=== PATIENT | female | born 1960 | race African-American/Black ===

== ENCOUNTER 2021-06-22 08:53 | Inpatient (IN) | payer OTHER ==
[2021-06-22 09:20] VITALS: BMI 25.6
[2021-06-22] MEDS ORDERED: MAGNESIUM CITRATE 300 ML BOTTLE PO PRN (12:07)
[2021-06-22] MEDS ORDERED: BISMUTH SUBSALICYLATE 524 MG/30 ML PO PRN (12:07)
[2021-06-22] MEDS ORDERED: NICOTINE POLACRILEX 4 MG GUM BUC PRN (12:07)
[2021-06-22] MEDS ORDERED: MAGNESIUM HYDROX 2400MG/30ML ORAL SUSPENSION 30 ML CUP PO PRN (12:07)
[2021-06-22] MEDS ORDERED: ONDANSETRON *ODT* 4 MG TABLET SL PRN (12:07)
[2021-06-22] MEDS ORDERED: MENTHOL/PHENOL 1 EACH UD MM PRN (12:07)
[2021-06-22] MEDS ORDERED: MAG HYDROX/AL HYDROX/SIMETH 30 ML UNIT-DOSE CUP PO PRN (12:07)
[2021-06-22] MEDS ORDERED: ACETAMINOPHEN 325 MG TABLET (FP) PO PRN ×2 (12:07)
[2021-06-22] MEDS ORDERED: IBUPROFEN 400 MG TABLET (FP) PO PRN (12:07)
[2021-06-22] MEDS: hydrOXYzine PAMOATE 25 MG CAPSULE (FP) PO SCH ×3 (13:08→23:14)
[2021-06-22] MEDS: diazePAM 5 MG TABLET PO PRN (13:08)
[2021-06-22] MEDS: diazePAM 5 MG TABLET PO SCH ×2 (18:24→23:14)
[2021-06-22] MEDS: THIAMINE HCL 100 MG TABLET (FP) PO SCH (23:14)
[2021-06-22] MEDS: MELATONIN 5 MG TABLETS PO SCH (23:14)
[2021-06-23] MEDS: hydrOXYzine PAMOATE 25 MG CAPSULE (FP) PO SCH ×3 (05:37→13:24)
[2021-06-23] MEDS: diazePAM 5 MG TABLET PO SCH ×4 (05:37→22:39)
[2021-06-23] MEDS: PRENATAL VITAMINS W/ FOLIC ACID TABLET (FP) PO SCH (10:21)
[2021-06-23 11:13] LABS: ALBUMIN 3.2 g/dl (3.4-5.0); CALCIUM 8.6 mg/dL (8.5-10.1)
[2021-06-23 11:14] LABS: HEMOGLOBIN 13.7 GM/dL (10.7-15.3); MCH 32.5 pg (25.7-33.7); MCHC 35.2 g/dl (32.0-36.0); MEAN CELL VOLUME 92.3 fl (80-96); MEAN PLT VOLUME 7.6 fl (7.5-11.1); PLATELET COUNT 294 10^3/uL (134-434); RBC 4.22 M/mm3 (3.60-5.2); RDW 13.7 % (11.6-15.6); WHITE BLOOD COUNT 6.4 K/mm3 (4.0-10.0)
[2021-06-23 11:19] LABS: BILIRUBIN,TOTAL 0.3 mg/dL (0.2-1); TOT PROT 7.2 g/dl (6.4-8.2)
[2021-06-23] MEDS ORDERED: hydrOXYzine PAMOATE 25 MG CAPSULE (FP) PO PRN (13:45)
[2021-06-23] MEDS ORDERED: PENICILLIN G BENZATHINE 2,400,000 UNIT/4 ML PFS IM ONE (14:18)
[2021-06-23] MEDS: MELATONIN 5 MG TABLETS PO SCH (22:39)
[2021-06-23] MEDS: diazePAM 5 MG TABLET PO ONE (22:42)
[2021-06-23] MEDS: THIAMINE HCL 100 MG TABLET (FP) PO SCH (22:43)
[2021-06-24] MEDS: diazePAM 5 MG TABLET PO SCH ×4 (06:01→22:36)
[2021-06-24] MEDS: diazePAM 5 MG TABLET PO PRN (10:26)
[2021-06-24] MEDS: PRENATAL VITAMINS W/ FOLIC ACID TABLET (FP) PO SCH (10:26)
[2021-06-24] MEDS: THIAMINE HCL 100 MG TABLET (FP) PO SCH (22:35)
[2021-06-24] MEDS: MELATONIN 5 MG TABLETS PO SCH (22:35)
[2021-06-24] MEDS: METHOCARBAMOL 500 MG TABLET PO PRN (22:36)
[2021-06-25] MEDS: diazePAM 5 MG TABLET PO SCH ×2 (07:24→18:42)
[2021-06-25] MEDS: PRENATAL VITAMINS W/ FOLIC ACID TABLET (FP) PO SCH (09:17)
[2021-06-25] MEDS: THIAMINE HCL 100 MG TABLET (FP) PO SCH (22:51)
[2021-06-25] MEDS: MELATONIN 5 MG TABLETS PO SCH (22:51)
[2021-06-26] MEDS: diazePAM 5 MG TABLET PO ONE (07:20)
[2021-06-26] MEDS: METHOCARBAMOL 500 MG TABLET PO PRN (07:33)
[2021-06-26] MEDS: PRENATAL VITAMINS W/ FOLIC ACID TABLET (FP) PO SCH (10:35)
[2021-06-26 13:53] VITALS: BP 129/83; PULSE 77; TEMP 96.9
== END 2021-06-26 14:36 | disposition other institution (70) | DRG 775 ==
LOC: YASAS 08:53 → Y3N 10:04
PROVIDERS: ADMIT Allergy & Immunology; ATTEND Allergy & Immunology
PROC: HZ2ZZZZ Detoxification Services for Substance Abuse Treatment (ICD-10-PCS; principal; 2021-06-22)
DX: F10.230 Alcohol dependence with withdrawal, uncomplicated (principal); F17.210 Nicotine dependence, cigarettes, uncomplicated; F43.10 Post-traumatic stress disorder, unspecified; M54.5 Low back pain; G89.29 Other chronic pain; A53.9 Syphilis, unspecified; R26.2 Difficulty in walking, not elsewhere classified; Z99.89 Dependence on other enabling machines and devices; Z87.81 Personal history of (healed) traumatic fracture; Z62.810 Personal history of physical and sexual abuse in childhood; Z56.0 Unemployment, unspecified
CPT/HCPCS: 36415; 80053; 85027; 86593; 86780; 93005; 93010; C9803; Q0162; U0003; U0005

== ENCOUNTER 2021-06-26 15:04 | Inpatient (IN) | payer OTHER ==
[2021-06-26] MEDS ORDERED: MAG HYDROX/AL HYDROX/SIMETH 30 ML UNIT-DOSE CUP PO PRN (16:02)
[2021-06-26] MEDS ORDERED: guaiFENesin 200 MG/10 ML 10 ML UNIT-DOSE CUPS PO PRN (16:02)
[2021-06-26] MEDS ORDERED: NICOTINE 10 MG CARTRIDGE (INHALER) IH PRN (16:02)
[2021-06-26] MEDS ORDERED: P-EPHED 60MG/TRIPROLIDI 2.5MG TABLET PO PRN (16:02)
[2021-06-26] MEDS ORDERED: MENTHOL/PHENOL 1 EACH UD MM PRN (16:02)
[2021-06-26] MEDS ORDERED: IBUPROFEN 400 MG TABLET (FP) PO PRN (16:02)
[2021-06-26] MEDS ORDERED: MAGNESIUM CITRATE 300 ML BOTTLE PO PRN (16:02)
[2021-06-26] MEDS ORDERED: LOPERAMIDE HCL 2 MG CAPSULE PO PRN (16:02)
[2021-06-26] MEDS ORDERED: ACETAMINOPHEN 325 MG TABLET (FP) PO PRN (16:02)
[2021-06-26] MEDS ORDERED: MAGNESIUM HYDROX 2400MG/30ML ORAL SUSPENSION 30 ML CUP PO PRN (16:02)
[2021-06-26] MEDS: MELATONIN 5 MG TABLETS PO SCH (22:30)
[2021-06-26] MEDS: THIAMINE HCL 100 MG TABLET (FP) PO SCH (22:31)
[2021-06-27] MEDS: PRENATAL VITAMINS W/ FOLIC ACID TABLET (FP) PO SCH (11:11)
[2021-06-27] MEDS: NICOTINE 7 MG/24 HOURS TOPICAL PATCH TD SCH (11:11)
[2021-06-27] MEDS: METHOCARBAMOL 500 MG TABLET PO PRN (16:01)
[2021-06-27] MEDS: NICOTINE POLACRILEX 4 MG GUM BUC PRN (16:01)
[2021-06-27] MEDS: THIAMINE HCL 100 MG TABLET (FP) PO SCH (21:08)
[2021-06-27] MEDS: MELATONIN 5 MG TABLETS PO SCH (21:08)
[2021-06-28] MEDS: METHOCARBAMOL 500 MG TABLET PO PRN ×3 (06:24→22:30)
[2021-06-28] MEDS: NICOTINE POLACRILEX 4 MG GUM BUC PRN ×2 (06:25→10:50)
[2021-06-28] MEDS: PRENATAL VITAMINS W/ FOLIC ACID TABLET (FP) PO SCH (10:50)
[2021-06-28] MEDS: NICOTINE 7 MG/24 HOURS TOPICAL PATCH TD SCH (10:50)
[2021-06-28] MEDS: THIAMINE HCL 100 MG TABLET (FP) PO SCH (22:29)
[2021-06-28] MEDS: MELATONIN 5 MG TABLETS PO SCH (22:29)
[2021-06-29] MEDS: NICOTINE 7 MG/24 HOURS TOPICAL PATCH TD SCH (10:37)
[2021-06-29] MEDS: PRENATAL VITAMINS W/ FOLIC ACID TABLET (FP) PO SCH (10:37)
[2021-06-29] MEDS: METHOCARBAMOL 500 MG TABLET PO PRN ×3 (10:38→22:25)
[2021-06-29] MEDS: MELATONIN 5 MG TABLETS PO SCH (22:25)
[2021-06-29] MEDS: THIAMINE HCL 100 MG TABLET (FP) PO SCH (22:26)
[2021-06-30] MEDS: NICOTINE 7 MG/24 HOURS TOPICAL PATCH TD SCH (11:05)
[2021-06-30] MEDS: PRENATAL VITAMINS W/ FOLIC ACID TABLET (FP) PO SCH (11:05)
[2021-06-30] MEDS: METHOCARBAMOL 500 MG TABLET PO PRN ×2 (11:06→20:10)
[2021-06-30] MEDS: THIAMINE HCL 100 MG TABLET (FP) PO SCH (22:31)
[2021-06-30] MEDS: MELATONIN 5 MG TABLETS PO SCH (22:31)
[2021-07-01] MEDS: PRENATAL VITAMINS W/ FOLIC ACID TABLET (FP) PO SCH (10:42)
[2021-07-01] MEDS: NICOTINE 7 MG/24 HOURS TOPICAL PATCH TD SCH (10:43)
[2021-07-01] MEDS: NICOTINE POLACRILEX 4 MG GUM BUC PRN (10:44)
[2021-07-01] MEDS: METHOCARBAMOL 500 MG TABLET PO PRN (12:11)
[2021-07-01] MEDS: MELATONIN 5 MG TABLETS PO SCH (22:06)
[2021-07-01] MEDS: THIAMINE HCL 100 MG TABLET (FP) PO SCH (22:06)
[2021-07-02] MEDS: METHOCARBAMOL 500 MG TABLET PO PRN ×3 (06:41→21:04)
[2021-07-02] MEDS: PRENATAL VITAMINS W/ FOLIC ACID TABLET (FP) PO SCH (11:20)
[2021-07-02] MEDS: NICOTINE POLACRILEX 4 MG GUM BUC PRN (11:21)
[2021-07-02] MEDS: NICOTINE 7 MG/24 HOURS TOPICAL PATCH TD SCH (11:21)
[2021-07-02] MEDS: MELATONIN 5 MG TABLETS PO SCH (21:04)
[2021-07-02] MEDS: THIAMINE HCL 100 MG TABLET (FP) PO SCH (21:04)
[2021-07-03] MEDS: NICOTINE 7 MG/24 HOURS TOPICAL PATCH TD SCH (10:41)
[2021-07-03] MEDS: PRENATAL VITAMINS W/ FOLIC ACID TABLET (FP) PO SCH (10:41)
[2021-07-03] MEDS: NICOTINE POLACRILEX 4 MG GUM BUC PRN (10:43)
[2021-07-03] MEDS: METHOCARBAMOL 500 MG TABLET PO PRN ×2 (10:43→21:13)
[2021-07-03] MEDS: THIAMINE HCL 100 MG TABLET (FP) PO SCH (21:13)
[2021-07-03] MEDS: MELATONIN 5 MG TABLETS PO SCH (21:13)
[2021-07-04] MEDS: NICOTINE 7 MG/24 HOURS TOPICAL PATCH TD SCH (10:49)
[2021-07-04] MEDS: PRENATAL VITAMINS W/ FOLIC ACID TABLET (FP) PO SCH (10:49)
[2021-07-04] MEDS: METHOCARBAMOL 500 MG TABLET PO PRN ×2 (10:50→22:10)
[2021-07-04] MEDS: NICOTINE POLACRILEX 4 MG GUM BUC PRN ×2 (10:50→22:11)
[2021-07-04] MEDS: MELATONIN 5 MG TABLETS PO SCH (22:10)
[2021-07-04] MEDS: THIAMINE HCL 100 MG TABLET (FP) PO SCH (22:10)
[2021-07-05] MEDS: NICOTINE 7 MG/24 HOURS TOPICAL PATCH TD SCH (09:45)
[2021-07-05] MEDS: PRENATAL VITAMINS W/ FOLIC ACID TABLET (FP) PO SCH (09:45)
[2021-07-05] MEDS: NICOTINE POLACRILEX 4 MG GUM BUC PRN (09:46)
[2021-07-05] MEDS: METHOCARBAMOL 500 MG TABLET PO PRN (09:47)
[2021-07-05] MEDS: THIAMINE HCL 100 MG TABLET (FP) PO SCH (22:05)
[2021-07-05] MEDS: MELATONIN 5 MG TABLETS PO SCH (22:05)
[2021-07-06] MEDS: NICOTINE 7 MG/24 HOURS TOPICAL PATCH TD SCH (09:33)
[2021-07-06] MEDS: METHOCARBAMOL 500 MG TABLET PO PRN ×2 (09:33→21:08)
[2021-07-06] MEDS: PRENATAL VITAMINS W/ FOLIC ACID TABLET (FP) PO SCH (09:33)
[2021-07-06] MEDS: THIAMINE HCL 100 MG TABLET (FP) PO SCH (21:08)
[2021-07-06] MEDS: MELATONIN 5 MG TABLETS PO SCH (21:08)
[2021-07-06] MEDS: NICOTINE POLACRILEX 4 MG GUM BUC PRN (21:09)
[2021-07-07] MEDS: PRENATAL VITAMINS W/ FOLIC ACID TABLET (FP) PO SCH (09:47)
[2021-07-07] MEDS: METHOCARBAMOL 500 MG TABLET PO PRN ×2 (09:47→21:16)
[2021-07-07] MEDS: NICOTINE 7 MG/24 HOURS TOPICAL PATCH TD SCH (09:47)
[2021-07-07] MEDS: NICOTINE POLACRILEX 4 MG GUM BUC PRN (09:48)
[2021-07-07] MEDS: hydrOXYzine PAMOATE 25 MG CAPSULE (FP) PO PRN (09:48)
[2021-07-07] MEDS: MELATONIN 5 MG TABLETS PO SCH (21:15)
[2021-07-07] MEDS: THIAMINE HCL 100 MG TABLET (FP) PO SCH (21:15)
[2021-07-08] MEDS: NICOTINE 7 MG/24 HOURS TOPICAL PATCH TD SCH (11:46)
[2021-07-08] MEDS: PRENATAL VITAMINS W/ FOLIC ACID TABLET (FP) PO SCH ×2 (11:46→12:32)
[2021-07-08] MEDS: NICOTINE POLACRILEX 4 MG GUM BUC PRN (12:32)
[2021-07-08] MEDS: METHOCARBAMOL 500 MG TABLET PO PRN ×2 (12:32→21:11)
[2021-07-08] MEDS: MELATONIN 5 MG TABLETS PO SCH (21:10)
[2021-07-08] MEDS: THIAMINE HCL 100 MG TABLET (FP) PO SCH (21:10)
[2021-07-09] MEDS: METHOCARBAMOL 500 MG TABLET PO PRN (10:45)
[2021-07-09] MEDS: PRENATAL VITAMINS W/ FOLIC ACID TABLET (FP) PO SCH (10:45)
[2021-07-09] MEDS: NICOTINE 7 MG/24 HOURS TOPICAL PATCH TD SCH (10:45)
[2021-07-09] MEDS: MELATONIN 5 MG TABLETS PO SCH (22:46)
[2021-07-09] MEDS: THIAMINE HCL 100 MG TABLET (FP) PO SCH (22:47)
[2021-07-10] MEDS: PRENATAL VITAMINS W/ FOLIC ACID TABLET (FP) PO SCH (10:43)
[2021-07-10] MEDS: NICOTINE 7 MG/24 HOURS TOPICAL PATCH TD SCH (10:43)
[2021-07-10] MEDS: THIAMINE HCL 100 MG TABLET (FP) PO SCH (22:01)
[2021-07-10] MEDS: MELATONIN 5 MG TABLETS PO SCH (22:01)
[2021-07-10] MEDS: METHOCARBAMOL 500 MG TABLET PO PRN (22:01)
[2021-07-11] MEDS ORDERED: COLLOIDAL OATMEAL 1 BAR EACH TP PRN (10:28)
[2021-07-11] MEDS: PRENATAL VITAMINS W/ FOLIC ACID TABLET (FP) PO SCH (10:33)
[2021-07-11] MEDS: METHOCARBAMOL 500 MG TABLET PO PRN ×2 (10:35→22:07)
[2021-07-11] MEDS: NICOTINE 7 MG/24 HOURS TOPICAL PATCH TD SCH (10:35)
[2021-07-11] MEDS: TOLNAFTATE 1% CREAM 15 GM TUBE TP SCH ×2 (11:52→22:06)
[2021-07-11] MEDS: VITAMINS A AND D TOPICAL OINTMENT 60 GM TUBE TP SCH ×2 (11:53→22:05)
[2021-07-11] MEDS: THIAMINE HCL 100 MG TABLET (FP) PO SCH (22:05)
[2021-07-11] MEDS: MELATONIN 5 MG TABLETS PO SCH (22:06)
[2021-07-11] MEDS: NICOTINE POLACRILEX 4 MG GUM BUC PRN (22:08)
[2021-07-12] MEDS: PRENATAL VITAMINS W/ FOLIC ACID TABLET (FP) PO SCH (10:59)
[2021-07-12] MEDS: METHOCARBAMOL 500 MG TABLET PO PRN ×2 (10:59→21:53)
[2021-07-12] MEDS: NICOTINE 7 MG/24 HOURS TOPICAL PATCH TD SCH (10:59)
[2021-07-12] MEDS: hydrOXYzine PAMOATE 25 MG CAPSULE (FP) PO PRN (11:00)
[2021-07-12] MEDS: NICOTINE POLACRILEX 4 MG GUM BUC PRN ×2 (11:00→21:53)
[2021-07-12] MEDS: VITAMINS A AND D TOPICAL OINTMENT 60 GM TUBE TP SCH ×2 (11:01→21:53)
[2021-07-12] MEDS: TOLNAFTATE 1% CREAM 15 GM TUBE TP SCH ×2 (11:01→21:52)
[2021-07-12] MEDS: MELATONIN 5 MG TABLETS PO SCH (21:50)
[2021-07-12] MEDS: THIAMINE HCL 100 MG TABLET (FP) PO SCH (21:51)
[2021-07-13] MEDS: METHOCARBAMOL 500 MG TABLET PO PRN (10:47)
[2021-07-13] MEDS: NICOTINE 7 MG/24 HOURS TOPICAL PATCH TD SCH (10:47)
[2021-07-13] MEDS: PRENATAL VITAMINS W/ FOLIC ACID TABLET (FP) PO SCH (10:47)
[2021-07-13] MEDS: VITAMINS A AND D TOPICAL OINTMENT 60 GM TUBE TP SCH ×2 (10:48→22:20)
[2021-07-13] MEDS: TOLNAFTATE 1% CREAM 15 GM TUBE TP SCH ×2 (10:48→22:19)
[2021-07-13] MEDS: MELATONIN 5 MG TABLETS PO SCH (22:19)
[2021-07-13] MEDS: THIAMINE HCL 100 MG TABLET (FP) PO SCH (22:19)
[2021-07-14] MEDS: METHOCARBAMOL 500 MG TABLET PO PRN ×2 (11:07→21:07)
[2021-07-14] MEDS: PRENATAL VITAMINS W/ FOLIC ACID TABLET (FP) PO SCH (11:07)
[2021-07-14] MEDS: TOLNAFTATE 1% CREAM 15 GM TUBE TP SCH ×2 (11:07→21:05)
[2021-07-14] MEDS: NICOTINE POLACRILEX 4 MG GUM BUC PRN ×2 (11:08→21:08)
[2021-07-14] MEDS: NICOTINE 7 MG/24 HOURS TOPICAL PATCH TD SCH (11:08)
[2021-07-14] MEDS: VITAMINS A AND D TOPICAL OINTMENT 60 GM TUBE TP SCH ×2 (11:08→21:07)
[2021-07-14] MEDS ORDERED: PT OWN MED DRAWER 7, Y5N ONE (20:34)
[2021-07-14] MEDS: THIAMINE HCL 100 MG TABLET (FP) PO SCH (21:07)
[2021-07-14] MEDS: MELATONIN 5 MG TABLETS PO SCH (21:07)
[2021-07-15] MEDS: PRENATAL VITAMINS W/ FOLIC ACID TABLET (FP) PO SCH (10:03)
[2021-07-15] MEDS: NICOTINE 7 MG/24 HOURS TOPICAL PATCH TD SCH (10:04)
[2021-07-15] MEDS: NICOTINE POLACRILEX 4 MG GUM BUC PRN ×2 (10:04→21:14)
[2021-07-15] MEDS: TOLNAFTATE 1% CREAM 15 GM TUBE TP SCH ×2 (10:04→21:13)
[2021-07-15] MEDS: METHOCARBAMOL 500 MG TABLET PO PRN ×2 (10:04→21:13)
[2021-07-15] MEDS: VITAMINS A AND D TOPICAL OINTMENT 60 GM TUBE TP SCH ×2 (10:04→21:13)
[2021-07-15] MEDS ORDERED: PT OWN MED DRAWER 7, Y5N ONE (21:11)
[2021-07-15] MEDS: THIAMINE HCL 100 MG TABLET (FP) PO SCH (21:13)
[2021-07-15] MEDS: MELATONIN 5 MG TABLETS PO SCH (21:13)
[2021-07-16] MEDS: PRENATAL VITAMINS W/ FOLIC ACID TABLET (FP) PO SCH (10:24)
[2021-07-16] MEDS: NICOTINE 7 MG/24 HOURS TOPICAL PATCH TD SCH (10:24)
[2021-07-16] MEDS: TOLNAFTATE 1% CREAM 15 GM TUBE TP SCH ×2 (10:25→21:08)
[2021-07-16] MEDS: hydrOXYzine PAMOATE 25 MG CAPSULE (FP) PO PRN (10:25)
[2021-07-16] MEDS: METHOCARBAMOL 500 MG TABLET PO PRN ×2 (10:25→21:06)
[2021-07-16] MEDS: VITAMINS A AND D TOPICAL OINTMENT 60 GM TUBE TP SCH ×2 (10:26→21:09)
[2021-07-16] MEDS: NICOTINE POLACRILEX 4 MG GUM BUC PRN (10:26)
[2021-07-16] MEDS: THIAMINE HCL 100 MG TABLET (FP) PO SCH (21:05)
[2021-07-16] MEDS: MELATONIN 5 MG TABLETS PO SCH (21:05)
[2021-07-16] MEDS ORDERED: PT OWN MED DRAWER 7, Y5N ONE (21:08)
[2021-07-17 07:18] VITALS: BP 152/88; PULSE 58; TEMP 97.8
[2021-07-17] MEDS: METHOCARBAMOL 500 MG TABLET PO PRN (09:37)
[2021-07-17] MEDS: PRENATAL VITAMINS W/ FOLIC ACID TABLET (FP) PO SCH (09:37)
[2021-07-17] MEDS: VITAMINS A AND D TOPICAL OINTMENT 60 GM TUBE TP SCH (09:38)
[2021-07-17] MEDS: NICOTINE 7 MG/24 HOURS TOPICAL PATCH TD SCH (09:38)
[2021-07-17] MEDS: TOLNAFTATE 1% CREAM 15 GM TUBE TP SCH (09:38)
== END 2021-07-17 10:15 | disposition home or self-care (01) | DRG 772 ==
LOC: YASAS 15:04 → Y5N 15:06
PROVIDERS: ADMIT Allergy & Immunology; ATTEND Allergy & Immunology
PROC: HZ42ZZZ Group Counseling for Substance Abuse Treatment, Cognitive-Behavioral (ICD-10-PCS; principal; 2021-06-26)
DX: F10.20 Alcohol dependence, uncomplicated (principal); F43.10 Post-traumatic stress disorder, unspecified; Z21 Asymptomatic human immunodeficiency virus [HIV] infection status; A53.9 Syphilis, unspecified; M25.561 Pain in right knee; M54.5 Low back pain; G89.29 Other chronic pain; Z86.59 Personal history of other mental and behavioral disorders; Z87.81 Personal history of (healed) traumatic fracture; Z99.89 Dependence on other enabling machines and devices
CPT/HCPCS: 93005; 93010